=== PATIENT | female | born 1985 | race African-American/Black ===

== ENCOUNTER 2018-08-17 18:47 | Emergency (ER) | payer SELFPAY ==
[~2018-08-17 18:47] MED LIST: ISOVUE-370 76%-LOCM 1 ML ONE
[2018-08-17 19:17] LABS: Hemoglobin 7.8 g/dL (12.0-16.0); Mean Corpuscular HGB CONC 28.9 g/dL (32.0-36.0); Mean Corpuscular Hemoglobin 17.2 pg (27.0-31.0); Mean Corpuscular Volume 59.4 fL (78.0-98.0); Mean Platelet Volume 5.7 fL (7.4-10.4); Platelet Count 614 thou/uL (130-400); RBC Distribution Width 20.9 % (11.5-14.5); Red Blood Cell (RBC) Count 4.57 mill/uL (4.20-5.40); White Blood Cell (WBC) Count 7.5 thou/uL (4.8-10.8)
[2018-08-17] MEDS ORDERED: Ketorolac Tromethamine 30 MG/ML VIAL ONE (19:24)
[2018-08-17 19:37] LABS: ALT (SGPT) 10 U/L (8-55); AST (SGOT) 14 U/L (5-34); Albumin 4.3 g/dL (3.5-5.0); Alkaline Phosphatase 52 U/L (40-150); Anion Gap 12 mmol/L (10-20); BUN (Urea Nitrogen) 9 mg/dL (7.0-18.7); Bilirubin, Total 0.5 mg/dL (0.2-1.2); Calc. Creatinine Clearance 0 mL/min (70-130); Calcium 9.1 mg/dL (7.8-10.44); Carbon Dioxide 24 mmol/L (22-29); Chloride 107 mmol/L (98-107); Estimated GFR-MDRD Greater than 90; Globulin 3.8 g/dL (2.4-3.5); Glucose 101 mg/dL (70-105); Lipase 54 U/L (8-78); Potassium 3.5 mmol/L (3.5-5.1); Protein, Total 8.1 g/dL (6.0-8.3); Sodium 139 mmol/L (136-145)
[2018-08-17 19:39] LABS: #Basophils 0.1 thou/uL (0.0-0.2); #Eosinphils 0.1 thou/uL (0.0-0.7); #Lymphocytes 2.7 thou/uL (1.20-3.40); #Monocytes 0.5 thou/uL (0.11-0.59); %Basophils 1.2 % (0.0-1.0); %Eosinophils 1.8 % (0.0-10.0); %Lymphocytes 36.3 % (21.0-51.0); %Neutrophils 53.6 % (42.0-75.0); Anisocytosis SLIGHT = 6-15 cells (100X) (0-5/hpf); Hypochromia SLIGHT = 6-15 cells (100X) (0-5/hpf); MDiff Complete? YES; Microcytosis MODERATE=15-30 cells (100X) (0-5/hpf); PLT Morphology Comment Appears Increased; Poikilocytosis SLIGHT = 6-15 cells (100X) (0-5/hpf); Polychromasia SLIGHT = 2-3 cells (100X) (0-2/hpf); Target Cells SLIGHT = 2-5 cells (100X) (0-1/hpf)
[2018-08-17 19:45] LABS: Bilirubin Negative (Negative); Blood, Urine Large (Negative); Clarity CLOUDY (Clear); Glucose, Urine (Dipstick) Negative (Negative); Leukocyte Small (Negative); Nitrite Negative (Negative); Pregnancy Test - Urine (BHCG) Negative (Negative); Pregu Control Background? CLEAR/WHITE (CLR/WHITE); Pregu Control Bar Appear? YES (CONTROL BAR); Protein, Urine (Dipstick) 300 mg/dL (Neg-Trace); Specific Gravity 1.024 (1.002-1.036); Specific Gravity, Urine 1.024 (1.002-1.036)
[2018-08-17 19:52] LABS: Bacteria/HPF None Seen HPF (None Seen); Hyaline Casts/LPF 0-3 HYALINE CAST LPF (0-3 Hyaline); RBC/HPF GREATER THAN 50-TNTC HPF (0-3); Squamous Epithelial None Seen HPF (0-3); WBC/HPF 0-3 HPF (0-3)
--- NOTE | 2018-08-17 21:50 | ULT ---
PELVIC ULTRASOUND INCLUDING TRANSABDOMINAL, TRANSVAGINAL, AND VASCULAR DUPLEX WITH COLOR AND SPECTRAL DOPPLER IMAGING. HISTORY: 33-year-old female with history of pelvic pain, uterine mass, and vaginal bleeding. The uterus measures 10.3 x 4.8 x 5.8 cm. Endometrium is approximately 1 cm in thickness. Right ovary measures 3.1 x 6.3 x 4.0 cm and contains a 2.3 x 4.3 x 3.2 cm cyst. The left ovary measures 2.9 x 2.2 x 2.7 cm. The uterus is somewhat retroflexed. There is a large somewhat inhomogeneous solid mass not ed in the midline superior to the uterus and anterior to the uterine fundus region. This mass measure s 7.9 x 4.9 x 7.4 cm. It does not appear to be of either uterine or ovarian origin. IMPRESSION: Solid, somewhat poorly circumscribed inhomogeneous mass which accounts for a palpable finding anterio r superior to the uterus but does not appear to be of uterine or ovarian origin. Right ovarian cyst. No abscess or abnormal fluid collection within the pelvis. POS: [facility]
--- NOTE | 2018-08-17 22:59 | CT ---
ABDOMEN AND PELVIC CT SCAN WITH IV CONTRAST: 08/17/18 HISTORY: 33-year-old female with history of a palpable mass, mass seen prior pelvic ultrasound. The lung bases are clear. The liver, gallbladder, pancreas, spleen, adrenal glands are unremarkable. No renal calculus or obstruction. No abscess or abnormal fluid collection within the abdomen or pe lvis. Normal appearing appendix. There is a large poorly circumscribed soft tissue somewhat lobulated mass involving the inferior anterior abdominal wall between the umbilicus and the symphysis. This ma ss measures 5.1 x 9.1 x 7.4 cm. It appears to involve the left inferior rectus muscle and could possi scotty involve the right inferior rectus muscles as well. There is a 3.1 x 4.8 cm diameter circumscribed low attenuation focus in the right adnexal region, evidence for right ovarian cyst. The left ovary i s demonstrated. The uterus is demonstrated. Given lack of oral contrast, it would be difficult to exc lude some associated adenopathy in the abdomen or pelvis. IMPRESSION: Large poorly circumscribed somewhat lobulated anterior abdominal wall mass between the level of the u mbilicus and the symphysis. This certainly is concerning for a solid aggressive neoplasm. Right ovari an cyst. Lack of IV contrast significantly limits evaluation for lymphadenopathy in the abdomen or pe lvis. Normal appearing appendix. No renal calculus or obstruction. No definite evidence for liver metastasis. If clinically indicated, this mass would be amenable to percutaneous biopsy for diagnosis. POS: [facility]
--- NOTE | 2018-08-17 23:34 | RAD ---
EXAM: CHEST ONE VIEW: 08/17/18 HISTORY: 33-year-old female with history of abdominal mass and abnormal ct and ultrsound Artifact overlies the right shoulder and right chest. Heart size is within normal limits. The lungs a re clear. There is some contrast media in the right and left renal upper collecting systems from prev ious CT. No confluent pneumonia, overt edema, or pleural effusion. IMPRESSION: No acute intrathoracic disease. POS: [facility]
== END 2018-08-18 00:24 | disposition left against medical advice (07) ==
LOC: ERS 18:47
DX: D49.89 Neoplasm of unspecified behavior of other specified sites (principal); D64.9 Anemia, unspecified; N93.9 Abnormal uterine and vaginal bleeding, unspecified; F17.210 Nicotine dependence, cigarettes, uncomplicated
CPT/HCPCS: 36415; 71045; 74177; 76856; 80053; 81003; 81015; 81025; 83690; 85025; 85060; 86850; 86870; 86900; 86901; 86905; 96374; J1885

== ENCOUNTER 2019-07-18 10:39 | Emergency (ER) | payer SELFPAY ==
[2019-07-18 14:15] LABS: ALT (SGPT) 10 U/L (8-55); AST (SGOT) 22 U/L (5-34); Alkaline Phosphatase 43 U/L (40-110); Anion Gap 11 mmol/L (10-20); BUN (Urea Nitrogen) 10 mg/dL (7.0-18.7); Bilirubin, Total 0.5 mg/dL (0.2-1.2); Calc. Creatinine Clearance 0 mL/min (70-130); Calcium 8.8 mg/dL (7.8-10.44); Carbon Dioxide 20 mmol/L (22-29); Chloride 108 mmol/L (98-107); Estimated GFR-MDRD Greater than 90; Globulin 3.3 g/dL (2.4-3.5); Glucose 79 mg/dL (70-105); Lipase 35 U/L (8-78); Potassium 4.1 mmol/L (3.5-5.1); Protein, Total 7.3 g/dL (6.0-8.3); Sodium 135 mmol/L (136-145)
[2019-07-18 18:50] LABS: Hemoglobin 8.2 g/dL (12.0-16.0); Mean Corpuscular HGB CONC 28.7 g/dL (32.0-36.0); Mean Corpuscular Hemoglobin 17.3 pg (27.0-31.0); Mean Corpuscular Volume 60.1 fL (78.0-98.0); Platelet Count 130 thou/uL (130-400); RBC Distribution Width 20.5 % (11.5-14.5); Red Blood Cell (RBC) Count 4.77 mill/uL (4.20-5.40); White Blood Cell (WBC) Count 6.4 thou/uL (4.8-10.8)
[2019-07-18 18:51] LABS: Eosinophils 1 % (0-10); Hypochromia MODERATE=16-30 cells (100X) (0-5/hpf); Lymphocytes 25 % (21-51); MDiff Complete? YES; Monocytes 6 % (0-10); Neutrophil 68 % (42-75); Polychromasia SLIGHT = 2-3 cells (100X) (0-2/hpf)
[2019-07-18 18:52] LABS: Microcytosis MARKED = >30 cells (100X) (0-5/hpf); Schistocytes SLIGHT = 2-5 cells (100X) (0-1/hpf); Target Cells SLIGHT = 2-5 cells (100X) (0-1/hpf)
== END 2019-07-18 13:13 | disposition left against medical advice (07) ==
LOC: ERS 10:39
DX: Z53.21 Procedure and treatment not carried out due to patient leaving prior to being seen by health care provider (principal)
CPT/HCPCS: 80053; 83690; 85025

== ENCOUNTER 2021-03-03 08:25 | Emergency (ER) | payer SELFPAY | END 2021-03-03 14:43 | disposition home or self-care (01) | LOC: ERS 08:25 | DX: N92.1 Excessive and frequent menstruation with irregular cycle (principal); D64.9 Anemia, unspecified; I10 Essential (primary) hypertension; F17.210 Nicotine dependence, cigarettes, uncomplicated | CPT/HCPCS: 36430; 76856; 80053; 81003; 81015; 81025; 85025; 85060; 86850; 86870; 86900; 86901; 86922; 87480; 87491; 87510; 87591; 87660; 96365; 96375; J0696; J1885; P9016 ==